=== PATIENT | male | born 1990 | race American Indian/Alaskan Native ===

== ENCOUNTER 2018-02-26 20:09 | Emergency (ER) | payer SELFPAY ==
[2018-02-26] MEDS ORDERED: BABY ASPIRIN PO ONE (23:23)
--- NOTE | 2018-02-26 23:26 | Emergency Department Report ---
ED General Adult HPI - General Chief complaint: Chest Pain Stated complaint: CHEST PAIN Time Seen by Provider: 02/26/18 22:59 Source: patient Mode of arrival: Ambulatory Limitations: No Limitations - History of Present Illness Initial comments: Patient is 27 years old male with history of hypertension, noncompliant with his medication. Patient presented to the ER complaining of left-sided neck pain that radiated down to his left chest. Patient describes the pain as sharp times though achy. Patient denied any shortness of breath, fever or cough. Patient stated that his blood pressure was really high before. He stated that he was taking amlodipine 5 mg and he run out of his medicine and did not bother to refill it. Patient denying any headache, weakness numbness or tingling sensation. - Related Data Allergies Allergy/AdvReac Type Severity Reaction Status Date / Time No Known Allergies Allergy Unverified 02/26/18 20:34 ED Review of Systems ROS: Stated complaint: CHEST PAIN Other details as noted in HPI Comment: All other systems reviewed and negative Constitutional: denies: chills, fever Respiratory: denies: cough, orthopnea, shortness of breath, SOB with exertion, SOB at rest Cardiovascular: chest pain. denies: palpitations, dyspnea on exertion Gastrointestinal: denies: abdominal pain, nausea Genitourinary: denies: urgency, dysuria Neurological: denies: headache, weakness, numbness, paresthesias, confusion ED Past Medical Hx - Past Medical History Hx Hypertension: Yes - Surgical History Past Surgical History?: No - Social History Smoking Status: Never Smoker Substance Use Type: None ED Physical Exam - General Limitations: No Limitations General appearance: alert, in no apparent distress - Head Head exam: Present: atraumatic, normocephalic, normal inspection - Eye Eye exam: Present: normal appearance, PERRL - ENT ENT exam: Present: normal exam, normal orophraynx, mucous membranes moist - Neck Neck exam: Present: normal inspection, full ROM. Absent: tenderness, meningismus, lymphadenopathy, thyromegaly - Respiratory Respiratory exam: Present: normal lung sounds bilaterally. Absent: respiratory distress, wheezes, rales, rhonchi, stridor, chest wall tenderness, accessory muscle use, decreased breath sounds, prolonged expiratory - Cardiovascular Cardiovascular Exam: Present: regular rate, normal rhythm, normal heart sounds - GI/Abdominal GI/Abdominal exam: Present: soft, normal bowel sounds. Absent: distended, tenderness, guarding, rebound, rigid, organomegaly, mass, bruit, pulsatile mass - Extremities Exam Extremities exam: Present: normal inspection, full ROM, normal capillary refill - Back Exam Back exam: Present: normal inspection, full ROM. Absent: CVA tenderness (R), CVA tenderness (L) - Neurological Exam Neurological exam: Present: alert, oriented X3, CN II-XII intact, normal gait, reflexes normal - Skin Skin exam: Present: warm, intact, normal color ED Course Vital Signs 02/26/18 02/26/18 02/26/18 20:14 23:00 23:08 Temperature 98.8 F 98.6 F Pulse Rate 66 56 L Respiratory 16 16 Rate Blood Pressure 163/87 154/89 Blood Pressure 154/89 [Left] O2 Sat by Pulse 98 99 100 Oximetry 02/27/18 02/27/18 02/27/18 00:00 00:16 01:00 Temperature Pulse Rate Respiratory Rate Blood Pressure 146/96 146/96 139/92 Blood Pressure [Left] O2 Sat by Pulse 100 100 100 Oximetry ED Medical Decision Making - Lab Data Result diagrams: 02/26/18 23:36 02/26/18 23:36 - EKG Data -: EKG Interpreted by [place] EKG shows normal: sinus rhythm Rate: normal - EKG Data Interpretation: no acute changes - Radiology Data Radiology results: report reviewed Referring Physician: NURIS PEREZ Patient Name: JACINDA MIGUEL Date of : 1990 Sex: Male Report Date: 2018-02-27 Report Status: Finalized Findings [facility] [address] [place] [address] XRay Report Signed Patient: JACINDA MIGUEL MR#: [id number] : 1990 Acct:[id number] Age/Sex: 27 / M ADM Date: 02/26/18 Loc: ED Attending Dr: Ordering Physician: NURIS PEREZ Date of Service: 02/26/18 Procedure(s): XR chest 1V ap Accession Number(s): [id number] cc: NURIS PEREZ Fluoro Time In Minutes: FINAL REPORT PROCEDURE: XR CHEST 1V AP TECHNIQUE: Chest radiograph anteroposterior view. CPT 95690 HISTORY: chest pain COMPARISON: No prior studies are available for comparison. FINDINGS: Heart: Normal. Mediastinum/Vessels: Normal. Lungs/Pleural space: Lungs are clear. There are no infiltrates, effusions or pneumothoraces.. Bony thorax: No acute osseous abnormality. Life support devices: None. IMPRESSION: No acute cardiopulmonary abnormality. Transcribed By: CO Dictated By: KELLY BROWN MD Electronically Authenticated By: KELLY BROWN MD Signed Date/Time: 02/27/1828 DD/ TD/TT: 02/27/1828 Critical care attestation.: If time is entered above; I have spent that time in minutes in the direct care of this critically ill patient, excluding procedure time. ED Disposition Clinical Impression: Chest pain, Hypertension Disposition: DC-01 TO HOME OR SELFCARE Is pt being admited?: No Condition: Stable Instructions: Chest Pain (ED), Hypertension (ED) Referrals: [facility] [Provider Group] - 3-5 Days
[2018-02-26 23:54] LABS: Basophils # (Auto) 0.1 K/mm3 (0.0-0.1); Basophils % (Auto) 2.7 % (0.0-1.8); Eosinophils # (Auto) 0.1 K/mm3 (0.0-0.4); Eosinophils % (Auto) 1.2 % (0.0-4.3); Hematocrit 40.7 % (35.5-45.6); Hemoglobin 13.7 gm/dl (11.8-15.2); Lymphocytes # (Auto) 1.5 K/mm3 (1.2-5.4); Lymphocytes % (Auto) 31.4 % (13.4-35.0); Mean Corpuscular HGB Conc 34 % (32-34); Mean Corpuscular Hemoglobin 31 pg (28-32); Mean Corpuscular Volume 93 fl (84-94); Monocytes # (Auto) 0.3 K/mm3 (0.0-0.8); Platelet Count 217 K/mm3 (140-440); Red Blood Count 4.39 M/mm3 (3.65-5.03); Red Cell Distribution Width 13.1 % (13.2-15.2)
[2018-02-27 00:09] LABS: BUN/Creatinine Ratio 14; Blood Urea Nitrogen 11 mg/dL (9-20); Calcium 9.3 mg/dL (8.4-10.2); Hemolysis Index 0
--- NOTE | 2018-02-27 00:32 | XRay Report ---
FINAL REPORT PROCEDURE: XR CHEST 1V AP TECHNIQUE: Chest radiograph anteroposterior view. CPT 59217 HISTORY: chest pain COMPARISON: No prior studies are available for comparison. FINDINGS: Heart: Normal. Mediastinum/Vessels: Normal. Lungs/Pleural space: Lungs are clear. There are no infiltrates, effusions or pneumothoraces.. Bony thorax: No acute osseous abnormality. Life support devices: None. IMPRESSION: No acute cardiopulmonary abnormality.
[2018-02-27 01:06] VITALS: BP 139/92
== END 2018-02-27 01:25 | disposition home or self-care (01) ==
LOC: ED 20:09
DX: R07.89 Other chest pain (principal); M54.2 Cervicalgia; I10 Essential (primary) hypertension
CPT/HCPCS: 36415; 71045; 80048; 84484; 85025; 93005; 93010

== ENCOUNTER 2018-05-10 16:41 | Emergency (ER) | payer SELFPAY ==
[2018-05-10 17:30] VITALS: BP 136/84
[2018-05-10] MEDS ORDERED: FIORICET PO ONE (20:46)
[2018-05-10 21:29] LABS: Hematocrit 46.1 % (35.5-45.6); Hemoglobin 15.4 gm/dl (11.8-15.2); Mean Corpuscular HGB Conc 33 % (32-34); Mean Corpuscular Volume 92 fl (84-94); Platelet Count 272 K/mm3 (140-440); Red Blood Count 4.99 M/mm3 (3.65-5.03); Red Cell Distribution Width 13.9 % (13.2-15.2)
[2018-05-10 21:46] LABS: Alanine Aminotransferase 15 units/L (7-56); Albumin 4.8 g/dL (3.9-5); BUN/Creatinine Ratio 9; Blood Urea Nitrogen 8 mg/dL (9-20); Calcium 9.9 mg/dL (8.4-10.2); Hemolysis Index 6
--- NOTE | 2018-05-10 22:01 | Emergency Department Report ---
ED Headache HPI - General Chief Complaint: Headache Stated Complaint: HIGH BP Time Seen by Provider: 05/10/18 20:31 - History of Present Illness Initial Comments: This is a 27-year-old male who presents to ED complaining of left-sided temporal headache that started this morning. Patient states he sometimes gets headaches but this morning he had a throbbing aching headache 5 out of 10 intensity. She states she decided to coronary to work. 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 Patient states his blood pressure was 198/98 when taken by the EMT. Patient states that he did not want to come into the ER with the EMT stated at work. Patient states after why he left work to come in to be evaluated. Patient states that he has not been taking her blood pressure medication and because he just moved here from [facility]. He denies blurry vision, fever, chest pain, shortness of breath. Allergies/Adverse Reactions: Allergies No Known Allergies Allergy (Unverified 02/26/18 20:34) Home Medications: Ambulatory Orders Butalb/Acetamin/Caff 50-325-40 [Fioricet] 1 tab PO Q6HR PRN #20 tab 05/10/18 Lisinopril [Zestril] 10 mg PO DAILY #40 tablet 05/10/18 hydroCHLOROthiazide [HCTZ] 25 mg PO QDAY #30 tablet 05/10/18 ED Review of Systems ROS: Stated complaint: HIGH BP Other details as noted in HPI Constitutional: denies: chills, fever Eyes: denies: eye pain, eye discharge, vision change ENT: denies: ear pain, throat pain, dental pain, congestion Respiratory: denies: cough, shortness of breath, wheezing Cardiovascular: denies: chest pain, palpitations Endocrine: no symptoms reported Gastrointestinal: denies: abdominal pain, nausea, vomiting, diarrhea Genitourinary: denies: urgency, dysuria Musculoskeletal: denies: back pain, joint swelling, arthralgia Skin: denies: rash, lesions Neurological: headache. denies: weakness, numbness, paresthesias, confusion, abnormal gait Psychiatric: denies: anxiety, depression Hematological/Lymphatic: denies: easy bleeding, easy bruising ED Past Medical Hx - Past Medical History Hx Hypertension: Yes (OUT OF MEDICATION) - Surgical History Past Surgical History?: No - Social History Smoking Status: Never Smoker Substance Use Type: None - Medications Home Medications: Home Medications Medication Instructions Recorded Confirmed Last Taken Type Butalb/Acetamin/Caff 50-325-40 1 tab PO Q6HR PRN #20 tab 05/10/18 Unknown Rx [Fioricet] Lisinopril [Zestril] 10 mg PO DAILY #40 tablet 05/10/18 Unknown Rx hydroCHLOROthiazide [HCTZ] 25 mg PO QDAY #30 tablet 05/10/18 Unknown Rx ED Physical Exam - General Limitations: No Limitations General appearance: alert, in no apparent distress - Head Head exam: Present: atraumatic, normocephalic - Eye Eye exam: Present: normal appearance, PERRL Pupils: Present: normal accommodation - ENT ENT exam: Present: mucous membranes moist - Neck Neck exam: Present: normal inspection - Respiratory Respiratory exam: Present: normal lung sounds bilaterally. Absent: respiratory distress - Cardiovascular Cardiovascular Exam: Present: regular rate, normal rhythm. Absent: systolic murmur, diastolic murmur, rubs, gallop - GI/Abdominal GI/Abdominal exam: Present: soft, normal bowel sounds - Rectal Rectal exam: Present: deferred - Extremities Exam Extremities exam: Present: normal inspection - Back Exam Back exam: Present: normal inspection - Neurological Exam Neurological exam: Present: alert, oriented X3 - Expanded Neurological Exam Expanded Patient oriented to: Present: person, place, time Speech: Present: fluid speech Cranial nerves: EOM's Intact: Normal, Facial Sensation: Normal Cerebellar function: Finger to Nose: Normal Sensory exam: Upper Extremity Light Touch: Normal, Lower Extremity Temperature: Normal Motor strength exam: RUE: 5, LUE: 5, RLE: 5, LLE: 5 Best Eye Response ([place]): (4) open spontaneously Best Motor Response ([place]): (6) obeys commands Best Verbal Response ([place]): (5) oriented [place] Total: 15 - Psychiatric Psychiatric exam: Present: normal affect, normal mood - Skin Skin exam: Present: warm, dry, intact, normal color. Absent: rash ED Course Vital Signs 05/10/18 17:24 Temperature 98.5 F Pulse Rate 72 Respiratory 16 Rate Blood Pressure 136/84 O2 Sat by Pulse 99 Oximetry ED Medical Decision Making - Lab Data Result diagrams: 05/10/18 21:00 05/10/18 21:00 Laboratory Last Values WBC 5.1 K/mm3 (4.5-11.0) 05/10/18 21:00 RBC 4.99 M/mm3 (3.65-5.03) 05/10/18 21:00 Hgb 15.4 gm/dl (11.8-15.2) H 05/10/18 21:00 Hct 46.1 % (35.5-45.6) H 05/10/18 21:00 MCV 92 fl (84-94) 05/10/18 21:00 MCH 31 pg (28-32) 05/10/18 21:00 MCHC 33 % (32-34) 05/10/18 21:00 RDW 13.9 % (13.2-15.2) 05/10/18 21:00 Plt Count 272 K/mm3 (140-440) 05/10/18 21:00 Sodium 135 mmol/L (137-145) L 05/10/18 21:00 Potassium 3.2 mmol/L (3.6-5.0) L 05/10/18 21:00 Chloride 92.7 mmol/L (98-107) L 05/10/18 21:00 Carbon Dioxide 28 mmol/L (22-30) 05/10/18 21:00 Anion Gap 18 mmol/L 05/10/18 21:00 BUN 8 mg/dL (9-20) L 05/10/18 21:00 Creatinine 0.9 mg/dL (0.8-1.5) 05/10/18 21:00 Estimated GFR > 60 ml/min 05/10/18 21:00 BUN/Creatinine Ratio 9 % 05/10/18 21:00 Glucose 107 mg/dL (75-100) H 05/10/18 21:00 Calcium 9.9 mg/dL (8.4-10.2) 05/10/18 21:00 Total Bilirubin 1.10 mg/dL (0.1-1.2) 05/10/18 21:00 AST 19 units/L (5-40) 05/10/18 21:00 ALT 15 units/L (7-56) 05/10/18 21:00 Alkaline Phosphatase 89 units/L (35-129) 05/10/18 21:00 Total Protein 8.7 g/dL (6.3-8.2) H 05/10/18 21:00 Albumin 4.8 g/dL (3.9-5) 05/10/18 21:00 Albumin/Globulin Ratio 1.2 % 05/10/18 21:00 - Medical Decision Making 27-year-old male presents with headache/status post elevated blood pressure while at work. Upon arrival patient's blood pressure was stable. CBC, BMP drawn labs within normal limits. Electrolytes are low patient is dehydrated. Patient also did state that he is out of his blood pressure medication. Discussed to palpation that elevated blood pressure monitor hydration or stress on to surgical causes of headache. Patient received Fioricet 2 tablets in the ED. Upon reevaluation patient states reports feeling much better Discussed the patient we'll refill his medication for blood pressure to reduce and maintain his pressure Discussed increase hydration on a daily basis. Vital signs are normal patient is in no acute or respiratory distress Patient had no neuro deficit is neurologically stable and will be discharged Critical care attestation.: If time is entered above; I have spent that time in minutes in the direct care of this critically ill patient, excluding procedure time. ED Disposition Clinical Impression: Headache, Hypertension Disposition: - TO HOME OR SELFCARE Is pt being admited?: No Does the pt Need Aspirin: No Condition: Stable Instructions: Acute Headache (ED), Tension Headache (ED), Migraine Headache (ED), Hypertension (ED) Additional Instructions: Make sure to follow up with the primary care physician as discussed. Take all your medications as you've been prescribed. If you have any worsening symptoms or develop new symptoms please return to ED immediately. Prescriptions: Butalb/Acetamin/Caff 50-325-40 [Fioricet] 1 tab PO Q6HR PRN #20 tab PRN Reason: Headache hydroCHLOROthiazide [HCTZ] 25 mg PO QDAY #30 tablet Lisinopril [Zestril] 10 mg PO DAILY #40 tablet Referrals: JANNA EMERY MD [Staff Physician] - 3-5 Days KELSY WESLEY MD [Referring] - 3-5 Days [facility] [Outside] - 3-5 Days [facility] [Outside] - 3-5 Days Forms: Accompanied Note, Work/School Release Form(ED) Time of Disposition: 22:08
== END 2018-05-10 22:30 | disposition home or self-care (01) ==
LOC: ED 16:41
DX: I10 Essential (primary) hypertension (principal)
CPT/HCPCS: 36415; 80053; 85027; 99283